=== PATIENT | male | born 1950 | race Two or more races ===

== ENCOUNTER 2018-09-06 02:02 | Inpatient (IN) | payer SELFPAY ==
[~2018-09-06] VITALS: Ht 167.6 cm; Wt 78.0 kg
[2018-09-06 02:05] VITALS: BP 127/75
[2018-09-06] MEDS ORDERED: Isovue-370 150ml vial INJ PRN (02:15)
[2018-09-06] MEDS ORDERED: Nitroglycerin 2% oint pkt TOPIC ONE (02:15)
[2018-09-06] MEDS ORDERED: Morphine Sulfate 2mg/ml Inj IVP ONE (02:15)
[2018-09-06 02:38] LABS: BASOPHILS % (AUTO) 1.2 % (0.0-2.0); EOSINOPHILS % (AUTO) 6.8 % (0.0-3.0); HEMATOCRIT 37.8 % (42.0-52.0); LYMPHOCYTES % (AUTO) 20.8 % (20.0-45.0); MEAN CORPUSCULAR VOLUME 94 FL (80-99); MONOCYTES % (AUTO) 5.8 % (1.0-10.0); NEUTROPHILS % (AUTO) 65.5 % (45.0-75.0); PLATELET COUNT 170 K/UL (150-450); RED BLOOD COUNT 4.02 M/UL (4.70-6.10); RED CELL DISTRIBUTION WIDTH 11.7 % (11.6-14.8); WHITE BLOOD COUNT 6.6 K/UL (4.8-10.8)
[2018-09-06 02:51] LABS: ANION GAP 11 mmol/L (5-15); BLOOD UREA NITROGEN 22 mg/dL (7-18); CARBON DIOXIDE 25 MMOL/L (21-32); CHLORIDE 104 MMOL/L (98-107); CREATININE 1.1 MG/DL (0.55-1.30); POTASSIUM 4.2 MMOL/L (3.5-5.1); SODIUM 140 MMOL/L (136-145)
[2018-09-06 03:02] LABS: ALANINE AMINOTRANSFERASE 25 U/L (12-78); ALBUMIN 3.5 G/DL (3.4-5.0); ALBUMIN/GLOBULIN RATIO 1.1 (1.0-2.7); ALKALINE PHOSPHATASE 64 U/L (46-116); ASPARTATE AMINO TRANSFERASE 17 U/L (15-37); BILIRUBIN,TOTAL 0.5 MG/DL (0.2-1.0); CREATINE KINASE 158 U/L (26-308)
[2018-09-06] MEDS ORDERED: METFORMIN500 MG/5 M PO (03:21)
[2018-09-06] MEDS ORDERED: ENALAPRIL MALEAT5 MG ORAL (03:21)
[2018-09-06] MEDS ORDERED: ASPIRIN-LOW81 MG ORAL (03:21)
[2018-09-06] MEDS ORDERED: LIPITOR80 MG ORAL (03:23)
[2018-09-06] MEDS ORDERED: METOPROLOL SUCC50 MG ORAL (03:23)
--- NOTE | 2018-09-06 04:35 | Diagnostic Imaging Report ---
EXAM: XR Chest, 1 View. CLINICAL HISTORY: CP TECHNIQUE: Frontal view of the chest. COMPARISON: No relevant prior studies available. FINDINGS: Lungs: No airspace consolidation or acute interstitial abnormality. Pleural spaces: Unremarkable. No pneumothorax. Heart: Unremarkable. No cardiomegaly. Mediastinum: Unremarkable. Bones: Unremarkable. No acute fracture. IMPRESSION: No evidence of active cardiopulmonary abnormality.
--- NOTE | 2018-09-06 04:35 | Diagnostic Imaging Report ---
EXAM: CT Chest With Intravenous Contrast. CLINICAL HISTORY: Chest pain TECHNIQUE: Axial computed tomography images of the chest with intravenous contrast during the arterial phase of enhancement. CTDI is 23.1 mGy and DLP is 758 mGy-cm. One or more of the following dose reduction techniques were used: automated exposure control, adjustment of the mA and/or kV according to patient size, use of iterative reconstruction technique. COMPARISON: No relevant prior studies available. FINDINGS: Pulmonary arteries: Unremarkable. No pulmonary embolism. Aorta: No acute findings. No thoracic aortic aneurysm. Lungs: Lungs are normally aerated. No evidence of airspace consolidation or interstitial abnormality. No pulmonary nodules or masses. Pleural spaces: Unremarkable. No significant effusion. No pneumothorax. Heart: Heart size normal. Severe coronary artery calcifications. No significant pericardial effusion. No evidence of RV dysfunction. Bones: Unremarkable. No acute fracture. Lymph nodes: Unremarkable. No enlarged lymph nodes. IMPRESSION: No pulmonary embolism. No thoracic aortic dissection or aneurysmal dilatation. Severe coronary artery calcifications.
[2018-09-06 04:40] LABS: APPEARANCE,URINE CLEAR; BILIRUBIN, URINE NEGATIVE (NEGATIVE); COLOR,URINE PALE YELLOW; GLUCOSE, URINE (UA) NEGATIVE (NEGATIVE); KETONES,URINE NEGATIVE (NEGATIVE); LEUKOCYTE ESTERASE ,URINE NEGATIVE (NEGATIVE); NITRITE,URINE NEGATIVE (NEGATIVE); PH,URINE 7 (4.5-8.0); PROTEIN,URINE NEGATIVE (NEGATIVE); UROBILINOGEN,URINE NORMAL MG/DL (0.0-1.0)
--- NOTE | 2018-09-06 05:28 | Emergency Room Report ---
History of Present Illness General Chief Complaint: Chest Pain Source: Patient Present Illness HPI Patient awakened with substernal chest pain. This felt exactly right the same as when he had an acute myocardial infarction in [place] a few years ago. Paramedics gave him aspirin and nitroglycerin. The pain started off as an 8/10 and then was reduced to about 6/10 with medication. The pain is not radiating and is constant. He denies diaphoresis or nausea. Patient has risk factors of diabetes, hypertension, high cholesterol and previous smoking. He believes his family history was also positive. Prior cath in [place]. Not know if stent. In addition he's had some indigestion type of feelings with eating spicy foods. He had a transatlantic flight 3 days ago. He denies any calf pain. There's been no prior blood clots. No fevers, cough, sore throat, NVD, dysuria, joint pain, rashes, headache, palpitations, depression. Glucose controlled on oral medications. Allergies: Coded Allergies: No Known Allergies (Unverified , 09/06/18) Patient History Past Medical History: see triage record Social History: Denies: smoking - before Social History Narrative from [facility] Reviewed Nursing Documentation: PMH: Agreed; PSxH: Agreed Nursing Documentation-PMH Past Medical History: No History, Except For Hx Cardiac Problems: Yes Hx Hypertension: Yes Hx Diabetes: Yes - dm2 Review of Systems All Other Systems: negative except mentioned in HPI Physical Exam Vital Signs Date Time Temp Pulse Resp B/P (MAP) Pulse Ox O2 Delivery O2 Flow Rate FiO2 09/06/18 01:55 97.5 104 16 127/75 99 Room Air 97.5 Sp02 EP Interpretation: reviewed, normal General Appearance: well appearing, no apparent distress, GCS 15 Head: normocephalic Eyes: bilateral eye normal inspection, bilateral eye PERRL ENT: moist mucus membranes Neck: supple Respiratory: lungs clear, normal breath sounds Cardiovascular #1: regular rate, rhythm Cardiovascular #2: 2+ radial (R) Gastrointestinal: normal inspection, normal bowel sounds, non tender, no mass, non-distended Musculoskeletal: back normal, gait/station normal, normal range of motion Neurologic: alert, oriented x3 Skin: normal inspection, warm/dry Procedures Critical Care Time Critical Care Time Total Critical Care Time: 45 min bedside evaluation and treatment excludes procedures (EKGs). Reason for critical care: NSTEMI, threat to sign out AMA, exclude PE Possible complications: hypotension, hypertension, SD, shock, arrhythmias, metabolic acidosis, end organ damage, respiratory failure. Interventions: nitro-paste, metoprolol, plavix, discussion regarding AMA Course: Patient with multiple risk factors with chest pain. Treated in field with aspirin and nitrates. Continued nitrates. Due to recent travel history, CTA obtained and excluded PE. Pain free, and patient and family want to sign out AMA. Repeat troponin +. Repeat EKG, no injury. Metoprolol given with improved HR. Pain free. Plavix given. Consultations: nursing staff, EMS, family, admitting MD Performed by: Dr. Mcpherson Tolerated well condition = serious Medical Decision Making Diagnostic Impression: Primary Impression: NSTEMI (non-ST elevated myocardial infarction) ER Course Patient presents with substernal chest pain with multiple risk factors and prior SD. Differential includes acute myocardial infarction, acute coronary syndrome, reflux, atypical chest pain, PE amongst others. Of concern he just came to this country from [facility] 3 days ago in so there is increased risk of possible pulmonary embolus. The patient will be evaluation with EKG, chest x- ray, CT angiogram and labs. Patient received aspirin in the field and nitrates. The patient will be given Nitropaste and morphine and Zofran were ordered. EKG with sinus tachycardia and nonspecific ST-T wave changes. Chest x-ray no infiltrates. CT angiogram without pulmonary embolus. Initial troponin negative. Patient had refuted morphine but is pain-free at this time. Patient needs admission for the rest of exclusion of cardiac injury. Initially family and patient wanted to sign out AGAINST MEDICAL ADVICE.. I discussed the risks with him and the benefits and the course of treatment plan they agreed to stay. Patient was presented to Dr. Lilly who accepted the patient. Repeat troponin +. Metoprolol given. Plavix given. Repeat EKG with peaked T waves, still no STEMI. Discussed possible need for cath. Patient and family understood. Admit SDU, Dr. Lilly. Laboratory Tests Test 09/06/18 02:20 09/06/18 04:30 09/06/18 05:25 White Blood Count 6.6 K/UL (4.8-10.8) Red Blood Count 4.02 M/UL (4.70-6.10) L Hemoglobin 13.0 G/DL (14.2-18.0) L Hematocrit 37.8 % (42.0-52.0) L Mean Corpuscular Volume 94 FL (80-99) Mean Corpuscular Hemoglobin 32.5 PG (27.0-31.0) H Mean Corpuscular Hemoglobin Concent 34.5 G/DL (32.0-36.0) Red Cell Distribution Width 11.7 % (11.6-14.8) Platelet Count 170 K/UL (150-450) Mean Platelet Volume 6.4 FL (6.5-10.1) L Neutrophils (%) (Auto) 65.5 % (45.0-75.0) Lymphocytes (%) (Auto) 20.8 % (20.0-45.0) Monocytes (%) (Auto) 5.8 % (1.0-10.0) Eosinophils (%) (Auto) 6.8 % (0.0-3.0) H Basophils (%) (Auto) 1.2 % (0.0-2.0) Prothrombin Time 10.7 SEC (9.30-11.50) Prothrombin Time INR 1.0 (0.9-1.1) PTT 25 SEC (23-33) Sodium Level 140 MMOL/L (136-145) Potassium Level 4.2 MMOL/L (3.5-5.1) Chloride Level 104 MMOL/L (98-107) Carbon Dioxide Level 25 MMOL/L (21-32) Anion Gap 11 mmol/L (5-15) Blood Urea Nitrogen 22 mg/dL (7-18) H Creatinine 1.1 MG/DL (0.55-1.30) Estimate Glomerular Filtration Rate > 60 mL/min (>60) Glucose Level 158 MG/DL (74-106) H Calcium Level 9.0 MG/DL (8.5-10.1) Total Bilirubin 0.5 MG/DL (0.2-1.0) Aspartate Amino Transferase (AST) 17 U/L (15-37) Alanine Aminotransferase (ALT) 25 U/L (12-78) Alkaline Phosphatase 64 U/L (46-116) Total Creatine Kinase 158 U/L (26-308) Troponin I 0.006 ng/mL (0.000-0.056) 0.202 ng/mL (0.000-0.056) Pro-B-Type Natriuretic Peptide 146 pg/mL (0-125) H Total Protein 6.6 G/DL (6.4-8.2) Albumin 3.5 G/DL (3.4-5.0) Globulin 3.1 g/dL Albumin/Globulin Ratio 1.1 (1.0-2.7) Urine Color Pale yellow Urine Appearance Clear Urine pH 7 (4.5-8.0) Urine Specific [place] 1.005 (1.005-1.035) Urine Protein Negative (NEGATIVE) Urine Glucose (UA) Negative (NEGATIVE) Urine Ketones Negative (NEGATIVE) Urine Blood Negative (NEGATIVE) Urine Nitrite Negative (NEGATIVE) Urine Bilirubin Negative (NEGATIVE) Urine Urobilinogen Normal MG/DL (0.0-1.0) Urine Leukocyte Esterase Negative (NEGATIVE) EKG Diagnostic Results Rate: tachycardiac Rhythm: NSR ST Segments: no acute changes Rhythm Strip Diag. Results EP Interpretation: yes Rhythm: no PVC's, no ectopy, other - ST Chest X-Ray Diagnostic Results Chest X-Ray Diagnostic Results : Chest X-Ray Ordered: Yes # of Views/Limited/Complete: 1 View Indication: Chest Pain EP Interpretation: Yes Interpretation: no consolidation, no effusion, no pneumothorax Impression: No acute disease Electronically Signed by: Michael Mcpherson MD CT/MRI/US Diagnostic Results CT/MRI/US Diagnostic Results : Imaging Test Ordered: CTA chest Impression no PE Last Vital Signs Date Time Temp Pulse Resp B/P (MAP) Pulse Ox O2 Delivery O2 Flow Rate FiO2 09/06/18 09:14 126/77 09/06/18 09:02 84 09/06/18 08:00 97.7 17 100 97.7 09/06/18 08:00 Room Air Status: improved Disposition: ADMITTED INPATIENT Condition: Serious Referrals: NOT CHOSEN CHASE/,REFERRING (PCP) Michael Mcpherson M.D. Sep 06, 2018 05:28
[2018-09-06] MEDS ORDERED: Metoprolol 5mg/5ml Inj IVP STA (05:59)
[2018-09-06 06:57] VITALS: BP 126/77
[2018-09-06 08:00] VITALS: BP 126/77
[2018-09-06] MEDS ORDERED: Enalapril 2.5mg tab ONE (08:43)
[2018-09-06] MEDS: Aspirin Baby 81mg ORAL SCH (09:02)
[2018-09-06] MEDS: Metoprolol Succinate XL 50mg tab ORAL SCH (09:02)
[2018-09-06] MEDS: Enoxaparin 40mg Inj SUBQ SCH (09:03)
[2018-09-06] MEDS: Enalapril 5mg tab ORAL SCH ×2 (09:14→21:14)
--- NOTE | 2018-09-06 09:40 | Consultation ---
History of Present Illness General Date patient seen: Sep 06, 2018 Time patient seen: 09:35 Chief Complaint: Chest Pain Present Illness HPI 68 year old male visiting from [place]. He has a hx of CAD s/p PCI and NE He comes in with substernal chest pain. 04/27. States he was sleeping when he suddenly felt pressure and aching. Pain was non-radiating, No SOB. He was given two doses of nitro 0.4 mg and 1 tab of aspirin 324 mg. CXR clear. CTA No pulmonary embolism. No thoracic aortic dissection or aneurysmal dilatation. Severe coronary artery calcifications. Troponin elevated at 0.2 Allergies: Coded Allergies: No Known Allergies (Unverified , 09/06/18) Medication History Scheduled Aspirin (Aspirin EC), 100 MG ORAL DAILY, (Reported) Atorvastatin (Lipitor), 20 MG ORAL BEDTIME, (Reported) Enalapril Maleate* (Enalapril Maleate*), 5 MG ORAL EVERY 12 HOURS, (Reported) Metformin HCl (Metformin HCl), 850 MG PO THREE TIMES A DAY, (Reported) Metoprolol Succinate* (Metoprolol Succinate*), 50 MG ORAL DAILY, (Reported) Patient History Healthcare decision maker Resuscitation status Advanced Directive on File Review of Systems Constitutional: Reports: no symptoms Eye: Reports: no symptoms ENT: Reports: no symptoms Respiratory: Reports: no symptoms Cardiovascular: Reports: chest pain Gastrointestinal: Reports: no symptoms Genitourinary: Reports: no symptoms Musculoskeletal: Reports: no symptoms Skin: Reports: no symptoms Psychiatric: Reports: no symptoms Neurological: Reports: no symptoms Endocrine: Reports: no symptoms Hematologic/Lymphatic: Reports: no symptoms Physical Exam General Appearance: no apparent distress Lines, tubes and drains: peripheral HEENT: normocephalic, atraumatic Neck: non-tender, normal alignment, supple, normal inspection Respiratory/Chest: chest wall non-tender, lungs clear, normal breath sounds Cardiovascular/Chest: normal peripheral pulses, normal rate, regular rhythm Abdomen: normal bowel sounds, non tender Extremities: normal range of motion, non-tender, normal inspection, no calf tenderness, normal capillary refill Skin Exam: normal pigmentation, warm/dry Neurologic: casework manager II-XII grossly normal, no motor/sensory deficits, alert, oriented x 3 Last 24 Hour Vital Signs Date Time Temp Pulse Resp B/P (MAP) Pulse Ox O2 Delivery O2 Flow Rate FiO2 09/06/18 09:14 126/77 09/06/18 09:02 84 126/77 09/06/18 08:00 97.7 84 17 126/77 (93) 100 97.7 09/06/18 07:41 86 09/06/18 06:57 98.8 92 16 110/66 99 Room Air 09/06/18 06:57 97.7 84 17 126/77 (93) 100 97.7 09/06/18 06:06 92 109/59 09/06/18 02:38 124/71 09/06/18 02:05 97.5 88 16 127/75 99 Room Air 97.5 09/06/18 02:05 104 16 Room Air 09/06/18 01:55 97.5 104 16 127/75 99 Room Air 97.5 Laboratory Tests Test 09/06/18 02:20 09/06/18 04:30 09/06/18 05:25 White Blood Count 6.6 K/UL (4.8-10.8) Red Blood Count 4.02 M/UL (4.70-6.10) L Hemoglobin 13.0 G/DL (14.2-18.0) L Hematocrit 37.8 % (42.0-52.0) L Mean Corpuscular Volume 94 FL (80-99) Mean Corpuscular Hemoglobin 32.5 PG (27.0-31.0) H Mean Corpuscular Hemoglobin Concent 34.5 G/DL (32.0-36.0) Red Cell Distribution Width 11.7 % (11.6-14.8) Platelet Count 170 K/UL (150-450) Mean Platelet Volume 6.4 FL (6.5-10.1) L Neutrophils (%) (Auto) 65.5 % (45.0-75.0) Lymphocytes (%) (Auto) 20.8 % (20.0-45.0) Monocytes (%) (Auto) 5.8 % (1.0-10.0) Eosinophils (%) (Auto) 6.8 % (0.0-3.0) H Basophils (%) (Auto) 1.2 % (0.0-2.0) Prothrombin Time 10.7 SEC (9.30-11.50) Prothromb Time International Ratio 1.0 (0.9-1.1) Activated Partial Thromboplast Time 25 SEC (23-33) Sodium Level 140 MMOL/L (136-145) Potassium Level 4.2 MMOL/L (3.5-5.1) Chloride Level 104 MMOL/L (98-107) Carbon Dioxide Level 25 MMOL/L (21-32) Anion Gap 11 mmol/L (5-15) Blood Urea Nitrogen 22 mg/dL (7-18) H Creatinine 1.1 MG/DL (0.55-1.30) Estimat Glomerular Filtration Rate > 60 mL/min (>60) Glucose Level 158 MG/DL (74-106) H Calcium Level 9.0 MG/DL (8.5-10.1) Total Bilirubin 0.5 MG/DL (0.2-1.0) Aspartate Amino Transf (AST/SGOT) 17 U/L (15-37) Alanine Aminotransferase (ALT/SGPT) 25 U/L (12-78) Alkaline Phosphatase 64 U/L (46-116) Total Creatine Kinase 158 U/L (26-308) Troponin I 0.006 ng/mL (0.000-0.056) 0.202 ng/mL (0.000-0.056) Pro-B-Type Natriuretic Peptide 146 pg/mL (0-125) H Total Protein 6.6 G/DL (6.4-8.2) Albumin 3.5 G/DL (3.4-5.0) Globulin 3.1 g/dL Albumin/Globulin Ratio 1.1 (1.0-2.7) Urine Color Pale yellow Urine Appearance Clear Urine pH 7 (4.5-8.0) Urine Specific [place] 1.005 (1.005-1.035) Urine Protein Negative (NEGATIVE) Urine Glucose (UA) Negative (NEGATIVE) Urine Ketones Negative (NEGATIVE) Urine Blood Negative (NEGATIVE) Urine Nitrite Negative (NEGATIVE) Urine Bilirubin Negative (NEGATIVE) Urine Urobilinogen Normal MG/DL (0.0-1.0) Urine Leukocyte Esterase Negative (NEGATIVE) Height (Feet): 5 Height (Inches): 6.00 Weight (Pounds): 172 Medications Current Medications Medications (Trade) Dose Ordered Sig/Inocencia Route PRN Reason Start Time Stop Time Status Last Admin Dose Admin Acetaminophen (Tylenol) 650 mg Q4H PRN ORAL Mild Pain (Pain Scale 1-3) 09/06/18 08:30 10/06/18 08:29 Aspirin (ASA) 81 mg DAILY ORAL 09/06/18 09:00 10/06/18 08:59 09/06/18 09:02 Atorvastatin Calcium (Lipitor) 40 mg BEDTIME ORAL 09/06/18 21:00 10/06/18 20:59 Dextrose (Dextrose 50%) 25 ml Q30M PRN IV Hypoglycemia 09/06/18 08:30 10/06/18 08:29 Dextrose (Dextrose 50%) 50 ml Q30M PRN IV Hypoglycemia 09/06/18 08:30 10/06/18 08:29 Enalapril Maleate (Vasotec) 5 mg EVERY 12 HOURS ORAL 09/06/18 09:00 10/06/18 08:59 09/06/18 09:14 Enoxaparin Sodium (Lovenox) 40 mg Q24H SUBQ 09/06/18 09:00 10/06/18 08:59 09/06/18 09:03 Famotidine (Pepcid) 40 mg DAILY ORAL 09/06/18 09:00 10/06/18 08:59 09/06/18 09:00 Insulin Aspart (NovoLOG) BEFORE MEALS AND HS SUBQ 09/06/18 11:30 10/06/18 11:29 Iopamidol (Isovue-370 150ml) 150 ml NOW PRN INJ Radiology Procedure 09/06/18 02:15 09/08/18 02:10 Metoprolol Succinate (Toprol XL) 50 mg DAILY ORAL 09/06/18 09:00 10/06/18 08:59 09/06/18 09:02 Ondansetron HCl (Zofran) 4 mg Q6H PRN IVP Nausea & Vomiting 09/06/18 08:30 10/06/18 08:29 Sodium Chloride 1,000 ml @ 75 mls/hr [id number] IVLG 09/06/18 09:00 10/06/18 08:59 09/06/18 09:03 Assessment/Plan Status: stable Assessment/Plan Assessment CAD Chest pain NSTEMI Diabetes Plan: Heparin gtt Serial EKG/Troponin Nitro prn chest pain Aspirin/Plavix Enalapril Atorvastatin Will need transfer to [facility] for cardiac cath given: CP + Troponin and hx of CAD /NE/PCI (High SURI score) Echocardiogram to evaluate LV function/wall motion Michael Palomino MD Sep 06, 2018 09:40
[2018-09-06 12:00] VITALS: BP 150/66
[2018-09-06] MEDS: NovoLOG Insulin Flexpen SUBQ SCH ×3 (12:15→21:00)
[2018-09-06 16:00] VITALS: BP 118/68
[2018-09-06 20:00] VITALS: BP 107/60
[2018-09-06] MEDS: Atorvastatin 20mg tab ORAL SCH (21:13)
--- NOTE | 2018-09-06 22:00 | History and Physical Report ---
DATE OF ADMISSION: 09/06/2018 REASON FOR ADMISSION: 1. Acute coronary syndrome with chest pain. 2. Hypertension. 3. Diabetes mellitus. HISTORY OF PRESENT ILLNESS: The patient is a 68-year-old gentleman, who presented to the emergency room a few hours prior complaining of chest pain, 06/27. The patient states this felt exactly the way he had his first acute myocardial infarction approximately four years ago in [place]. He is currently feeling otherwise well and troponins have been trending slightly upwards. PAST MEDICAL HISTORY: 1. Coronary artery disease, status post GA. 2. Hypertension. 3. Hyperlipidemia. 4. Diabetes mellitus. PAST SURGICAL HISTORY: Noncontributory. ALLERGIES: No known drug allergies. SOCIAL HISTORY: Previous tobacco use. No alcohol or illicit drug use. FAMILY HISTORY: Positive for diabetes and hypertension. REVIEW OF SYSTEMS: NEUROLOGIC: The patient denies headache, change in vision, syncope or presyncopal episodes. CARDIOVASCULAR: He was having chest pain and pressure. No palpitations. PULMONARY: No difficulty breathing, productive cough, or sputum. GASTROINTESTINAL/GENITOURINARY: No change in urinary or bowel habits. No nausea, vomiting, or diarrhea. ENDOCRINOLOGY: No night sweats, fevers, or chills. LABORATORY DATA: Laboratories dated September 06, 2018, white cell count 6.6, hemoglobin 13, and platelet count 170. Sodium 140, potassium 4.2, BUN 22, creatinine 1.1, glucose 158, calcium 9.0. Troponin 0.202. PHYSICAL EXAMINATION: VITAL SIGNS: Blood pressure 110/66, 99% oxygen saturation on room air, pulse 92, and temperature 98.8. GENERAL: The patient awake, alert, not in distress. HEENT: Extraocular muscles intact. No lymphadenopathy. Oropharyngeal is clear and dry. CARDIOVASCULAR: S1, S2. No rubs or gallops. PULMONARY: Clear to auscultation bilaterally. No rales, rhonchi or wheezes. ABDOMEN: Nondistended and nontender. EXTREMITIES: No edema noted. ASSESSMENT AND PLAN: 1. Acute coronary syndrome, non ST-segment elevation myocardial infarction with trending troponin I upwards. At this time, Dr. Palomino, Cardiology has been consulted for further evaluation and management. 2. Hypertension. We will continue metoprolol and enalapril. 3. Hyperlipidemia. We will continue statin therapy. 4. Diabetes mellitus. At this time, insulin sliding scale with Accu-Cheks. We will hold metformin as he has been recently exposed to IV contrast. 5. DVT prophylaxis with Lovenox subcutaneous. Lance Shine MD DR: MAYANK JOB#: [id number] CC:
[2018-09-07] VITALS: BP 138/74
[2018-09-07] MEDS: NovoLOG Insulin Flexpen SUBQ SCH ×4 (06:30→20:59)
[2018-09-07 06:41] LABS: EOSINOPHILS % (AUTO) 4.3 % (0.0-3.0); HEMATOCRIT 36.6 % (42.0-52.0); HEMOGLOBIN 12.5 G/DL (14.2-18.0); MEAN CORPUSCULAR VOLUME 94 FL (80-99); MONOCYTES % (AUTO) 7.2 % (1.0-10.0); NEUTROPHILS % (AUTO) 69.5 % (45.0-75.0); PLATELET COUNT 161 K/UL (150-450); RED CELL DISTRIBUTION WIDTH 11.2 % (11.6-14.8); WHITE BLOOD COUNT 5.2 K/UL (4.8-10.8)
[2018-09-07 06:57] LABS: ANION GAP 5 mmol/L (5-15); BLOOD UREA NITROGEN 14 mg/dL (7-18); CALCIUM 8.3 MG/DL (8.5-10.1); CARBON DIOXIDE 27 MMOL/L (21-32); CHLORIDE 107 MMOL/L (98-107); CREATININE 0.9 MG/DL (0.55-1.30); POTASSIUM 3.9 MMOL/L (3.5-5.1); SODIUM 139 MMOL/L (136-145)
[2018-09-07 08:00] VITALS: BP 128/71
--- NOTE | 2018-09-07 09:10 | Nephrology Progress Note ---
Assessment/Plan Assessment/Plan A/P 1) ACS/NSTEMI- Trop I trending down - ? stent to cirumflex in past - transfer to [facility] for heart catherization 2) HTN- at goal 3) HLP- lipitor 4) DVT prophylaxsis with lovenox Subjective Date patient seen: Sep 07, 2018 Time patient seen: 09:07 ROS Limited/Unobtainable: No Allergies: Coded Allergies: No Known Allergies (Unverified , 09/06/18) All Systems: reviewed and negative except above Subjective Patient in no distress Objective Last 24 Hour Vital Signs Date Time Temp Pulse Resp B/P (MAP) Pulse Ox O2 Delivery O2 Flow Rate FiO2 09/07/18 08:00 98.1 74 20 128/71 (90) 97 98.1 09/07/18 04:00 Room Air 09/07/18 03:35 66 09/07/18 00:00 98.3 70 18 138/74 (95) 96 98.3 09/07/18 00:00 Room Air 09/06/18 23:31 70 09/06/18 21:14 107/60 09/06/18 20:00 Room Air 09/06/18 20:00 98.1 77 18 107/60 (76) 96 98.1 09/06/18 19:35 73 09/06/18 16:00 97.5 78 20 118/68 (85) 97 97.5 09/06/18 16:00 89 09/06/18 16:00 Room Air 09/06/18 12:00 Room Air 09/06/18 12:00 97.5 69 21 150/66 (94) 100 97.5 09/06/18 12:00 83 09/06/18 09:14 126/77 Intake and Output 09/06/18 09/07/18 19:00 07:00 Intake Total 2186.25 ml 557.5 ml Output Total 1675 ml Balance 511.25 ml 557.5 ml Intake Oral 1440 ml 220 ml IV Total 746.25 ml 337.5 ml Output Urine Total 1675 ml # Voids 5 Laboratory Tests 09/06/18 12:00: Troponin I 0.410H 09/06/18 18:08: Troponin I 0.284H 09/07/18 00:20: Troponin I 0.134H 09/07/18 06:22: Troponin I 0.132H, White Blood Count 5.2, Red Blood Count 3.90L, Hemoglobin 12.5L, Hematocrit 36.6L, Mean Corpuscular Volume 94, Mean Corpuscular Hemoglobin 32.2H, Mean Corpuscular Hemoglobin Concent 34.3, Red Cell Distribution Width 11.2L, Platelet Count 161, Mean Platelet Volume 6.7, Neutrophils (%) (Auto) 69.5, Lymphocytes (%) (Auto) 18.0L, Monocytes (%) (Auto) 7.2, Eosinophils (%) (Auto) 4.3H, Basophils (%) (Auto) 1.0, Sodium Level 139, Potassium Level 3.9, Chloride Level 107, Carbon Dioxide Level 27, Anion Gap 5, Blood Urea Nitrogen 14, Creatinine 0.9, Estimat Glomerular Filtration Rate > 60 , Glucose Level 116H, Calcium Level 8.3L Height (Feet): 5 Height (Inches): 6.00 Weight (Pounds): 172 General Appearance: no apparent distress, alert EENT: normal ENT inspection Neck: normal alignment, supple Cardiovascular: normal rate, regular rhythm Respiratory/Chest: lungs clear, normal breath sounds Abdomen: non tender, soft Edema: no edema noted Arm (L), no edema noted Arm (R), no edema noted Leg (L), no edema noted Leg (R), no edema noted Pedal (L), no edema noted Pedal (R), no edema noted Generalized Lance Shine MD Sep 07, 2018 09:10
--- NOTE | 2018-09-07 09:14 | Diagnostic Imaging Report ---
PORTABLE AP UPRIGHT CXR: HISTORY: 68-year-old male with chest pain. COMPARISON: Portable CXR and chest CTA with intravenous contrast 09/06/2018. FINDINGS: Compared to the prior exams and allowing for differences in modality/technique, there has been no significant interval change. Lungs remain essentially clear, apart from thin linear subsegmental atelectasis or fibrosis/scarring in the lateral left lung base. Heart size is normal and stable. Thoracic aortic calcified atherosclerotic plaque is noted, as before. No obvious pneumothorax or effusion. IMPRESSION: No acute abnormality or significant interval change.
[2018-09-07] MEDS: Aspirin Baby 81mg ORAL SCH (09:19)
[2018-09-07] MEDS: Enalapril 5mg tab ORAL SCH ×2 (09:20→20:56)
[2018-09-07] MEDS: Metoprolol Succinate XL 50mg tab ORAL SCH (09:20)
[2018-09-07] MEDS: Enoxaparin 40mg Inj SUBQ SCH (09:21)
--- NOTE | 2018-09-07 10:25 | Cardiology Progress Note ---
Assessment/Plan Status: stable Assessment/Plan Assessment CAD Chest pain NSTEMI Diabetes Plan: Heparin gtt x48 hours Serial EKG/Troponin -> down trending Nitro prn chest pain Aspirin/Plavix Enalapril Atorvastatin Stress test Saturday morning to evaluate degree of ischemia if not able to transfer Will need cardiac cath given: CP + Troponin and hx of CAD/MN/PCI (High SURI score) Echocardiogram with preserved LV function Subjective Cardiovascular: Reports: no symptoms Respiratory: Reports: no symptoms Gastrointestinal/Abdominal: Reports: no symptoms Genitourinary: Reports: no symptoms Subjective Vitals stable, chest pain controlled, CXR No acute abnormality or significant interval change, troponin down trending. Objective Last 24 Hour Vital Signs Date Time Temp Pulse Resp B/P (MAP) Pulse Ox O2 Delivery O2 Flow Rate FiO2 09/07/18 09:20 74 128/71 09/07/18 09:20 128/71 09/07/18 08:00 98.1 74 20 128/71 (90) 97 98.1 09/07/18 04:00 Room Air 09/07/18 03:35 66 09/07/18 00:00 98.3 70 18 138/74 (95) 96 98.3 09/07/18 00:00 Room Air 09/06/18 23:31 70 09/06/18 21:14 107/60 09/06/18 20:00 Room Air 09/06/18 20:00 98.1 77 18 107/60 (76) 96 98.1 09/06/18 19:35 73 09/06/18 16:00 97.5 78 20 118/68 (85) 97 97.5 09/06/18 16:00 89 09/06/18 16:00 Room Air 09/06/18 12:00 Room Air 09/06/18 12:00 97.5 69 21 150/66 (94) 100 97.5 09/06/18 12:00 83 General Appearance: no apparent distress, alert EENT: PERRL/EOMI, normal ENT inspection, TMs normal Neck: non-tender, normal alignment, supple, normal inspection, no JVD Rhythm: NSR Cardiovascular: normal peripheral pulses, normal rate, regular rhythm Respiratory/Chest: chest wall non-tender, lungs clear Abdomen: normal bowel sounds, non tender, soft Extremities: normal range of motion, non-tender 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, no motor/sensory deficits Intake and Output 09/06/18 09/07/18 19:00 07:00 Intake Total 2186.25 ml 557.5 ml Output Total 1675 ml Balance 511.25 ml 557.5 ml Intake Oral 1440 ml 220 ml IV Total 746.25 ml 337.5 ml Output Urine Total 1675 ml # Voids 5 Laboratory Tests Test 09/06/18 12:00 09/06/18 18:08 09/07/18 00:20 09/07/18 06:22 Troponin I 0.410 ng/mL (0.000-0.056) 0.284 ng/mL (0.000-0.056) 0.134 ng/mL (0.000-0.056) 0.132 ng/mL (0.000-0.056) White Blood Count 5.2 K/UL (4.8-10.8) Red Blood Count 3.90 M/UL (4.70-6.10) L Hemoglobin 12.5 G/DL (14.2-18.0) L Hematocrit 36.6 % (42.0-52.0) L Mean Corpuscular Volume 94 FL (80-99) Mean Corpuscular Hemoglobin 32.2 PG (27.0-31.0) H Mean Corpuscular Hemoglobin Concent 34.3 G/DL (32.0-36.0) Red Cell Distribution Width 11.2 % (11.6-14.8) L Platelet Count 161 K/UL (150-450) Mean Platelet Volume 6.7 FL (6.5-10.1) Neutrophils (%) (Auto) 69.5 % (45.0-75.0) Lymphocytes (%) (Auto) 18.0 % (20.0-45.0) L Monocytes (%) (Auto) 7.2 % (1.0-10.0) Eosinophils (%) (Auto) 4.3 % (0.0-3.0) H Basophils (%) (Auto) 1.0 % (0.0-2.0) Sodium Level 139 MMOL/L (136-145) Potassium Level 3.9 MMOL/L (3.5-5.1) Chloride Level 107 MMOL/L (98-107) Carbon Dioxide Level 27 MMOL/L (21-32) Anion Gap 5 mmol/L (5-15) Blood Urea Nitrogen 14 mg/dL (7-18) Creatinine 0.9 MG/DL (0.55-1.30) Estimat Glomerular Filtration Rate > 60 mL/min (>60) Glucose Level 116 MG/DL (74-106) H Calcium Level 8.3 MG/DL (8.5-10.1) L Michael Palomino MD Sep 07, 2018 10:25
[2018-09-07 12:00] VITALS: BP 153/56
[2018-09-07 16:00] VITALS: BP 130/71
[2018-09-07 20:00] VITALS: BP 105/71
[2018-09-07] MEDS: Atorvastatin 20mg tab ORAL SCH (20:57)
[2018-09-08] VITALS: BP 110/74
[2018-09-08 04:00] VITALS: BP 118/74
[2018-09-08] MEDS: NovoLOG Insulin Flexpen SUBQ SCH ×2 (06:27→11:30)
--- NOTE | 2018-09-08 08:10 | Nephrology Progress Note ---
Assessment/Plan Assessment/Plan A/P 1) ACS/NSTEMI- Trop I trending down - ? stent to cirumflex in past - transfer to [facility] for heart catherization if required - Trop Is trending down and stress test scheduled for today 2) HTN- at goal 3) HLP- lipitor 4) DVT prophylaxsis with lovenox Subjective Date patient seen: Sep 08, 2018 Time patient seen: 08:09 ROS Limited/Unobtainable: No Allergies: Coded Allergies: No Known Allergies (Unverified , 09/06/18) Subjective Patient in no distress. CP resolved Objective Last 24 Hour Vital Signs Date Time Temp Pulse Resp B/P (MAP) Pulse Ox O2 Delivery O2 Flow Rate FiO2 09/08/18 04:00 Room Air 09/08/18 04:00 74 09/08/18 04:00 98.4 74 18 118/74 (89) 100 98.4 09/08/18 00:00 98.2 70 18 110/74 (86) 100 98.2 09/08/18 00:00 Room Air 09/08/18 00:00 70 09/07/18 20:56 105/71 09/07/18 20:00 98.2 70 20 105/71 (82) 97 98.2 09/07/18 20:00 69 09/07/18 20:00 Room Air 09/07/18 16:00 83 09/07/18 16:00 98.4 70 20 130/71 (90) 97 98.4 09/07/18 16:00 Room Air 09/07/18 12:00 98.1 63 22 153/56 (88) 100 98.1 09/07/18 12:00 72 09/07/18 12:00 Room Air 09/07/18 09:20 74 128/71 09/07/18 09:20 128/71 Intake and Output 09/07/18 09/08/18 19:00 07:00 Intake Total 2460 ml 1000 ml Output Total 350 ml 1200 ml Balance 2110 ml -200 ml Intake Oral 1560 ml 100 ml IV Total 900 ml 900 ml Output Urine Total 350 ml 1200 ml # Voids 2 # Bowel Movements 1 Laboratory Tests 09/07/18 12:00: Troponin I 0.116H 09/07/18 17:45: Troponin I 0.108H 09/08/18 03:41: Troponin I 0.077H Height (Feet): 5 Height (Inches): 6.00 Weight (Pounds): 172 General Appearance: no apparent distress, alert EENT: normal ENT inspection Neck: normal alignment, supple Cardiovascular: normal rate, regular rhythm Respiratory/Chest: lungs clear, normal breath sounds Abdomen: non tender, soft Edema: no edema noted Arm (L), no edema noted Arm (R), no edema noted Leg (L), no edema noted Leg (R), no edema noted Pedal (L), no edema noted Pedal (R), no edema noted Generalized Lance Shine MD Sep 08, 2018 08:10
[2018-09-08 08:30] VITALS: BP 120/68
[2018-09-08] MEDS: Enalapril 5mg tab ORAL SCH (08:38)
[2018-09-08] MEDS: Aspirin Baby 81mg ORAL SCH (08:40)
[2018-09-08] MEDS: Enoxaparin 40mg Inj SUBQ SCH (08:40)
[2018-09-08] MEDS: Metoprolol Succinate XL 50mg tab ORAL SCH (09:00)
[2018-09-08] MEDS ORDERED: Lexiscan 0.4mg/5ml syringe IV PRN (09:00)
--- NOTE | 2018-09-08 11:11 | Diagnostic Imaging Report ---
Indication: Dyspnea Comparison: 09/07/2018 A single view chest radiograph was obtained. Findings: Cardiomediastinal appearance is within normal limits for age. Minimal left basal atelectasis noted. Pulmonary vascularity is appropriate. Aorta is mildly calcified. The diaphragmatic contour is smooth and costophrenic angles are sharp. No pleural effusions are identified. The bones are unremarkable. Impression: No acute findings
[2018-09-08 11:38] VITALS: BP 132/82
[2018-09-08 15:15] VITALS: BP 148/70
[2018-09-08] MEDS ORDERED: Lexiscan 0.4mg/5ml syringe IV ONE (15:30)
[2018-09-08 16:00] VITALS: BP 149/76
--- NOTE | 2018-09-08 16:25 | Diagnostic Imaging Report ---
Indication: chest pain Technique: The study was conducted under the supervision of a prepleater. lexiscan (regadenoson) infusion over 10 seconds followed by intravenous administration of 30.5 mCi of technetium 99m Myoview was performed. Three plane SPECT imaging of the heart was then performed. A resting study was performed as part of the one-day protocol with 10.9 mCi of technetium 99m myoview injected intravenously at that time. Three plane SPECT imaging of the heart was obtained. Comparison: None Clinical data: 1. Clinical response: Non ischemic 2. Electrocardiographic response: Non ischemic Findings: The myocardial perfusion scan demonstrates no definite fixed or reversible perfusion defects. LVEF estimated at 81% which is likely overestimated. IMPRESSION: Negative myocardial perfusion scan
[2018-09-08] MEDS ORDERED: NovoLOG Insulin Flexpen SUBQ SCH (16:30)
--- NOTE | 2018-09-08 17:42 | Cardiology Progress Note ---
Assessment/Plan Status: stable Assessment/Plan Assessment CAD Chest pain NSTEMI Diabetes Plan: Heparin gtt x48 hours Serial EKG/Troponin -> down trending Nitro prn chest pain Aspirin/Plavix Enalapril Atorvastatin Stress test Saturday morning to evaluate degree of ischemia if not able to transfer Will need cardiac cath given: CP + Troponin and hx of CAD/AL/PCI (High SURI score) Echocardiogram with preserved LV function STRESS TEST NEGATIVE FOR ISCHEMIA, no further chest pain ok to discharge, follow up pcp next week Subjective Cardiovascular: Reports: no symptoms Respiratory: Reports: no symptoms Gastrointestinal/Abdominal: Reports: no symptoms Genitourinary: Reports: no symptoms Subjective Vitals stable, chest pain controlled, CXR No acute abnormality or significant interval change, troponin down trending. Stress test negative for ischemia Objective Last 24 Hour Vital Signs Date Time Temp Pulse Resp B/P (MAP) Pulse Ox O2 Delivery O2 Flow Rate FiO2 09/08/18 16:00 85 09/08/18 16:00 98.1 20 149/76 (100) 98 98.1 09/08/18 15:15 97.3 89 20 148/70 (96) 100 97.3 09/08/18 12:00 67 09/08/18 12:00 Room Air 09/08/18 11:38 97.5 67 20 132/82 (99) 100 97.5 09/08/18 08:38 120/68 09/08/18 08:30 Room Air 09/08/18 08:30 97.5 70 20 120/68 (85) 98 97.5 09/08/18 08:00 74 09/08/18 04:00 Room Air 09/08/18 04:00 74 09/08/18 04:00 98.4 74 18 118/74 (89) 100 98.4 09/08/18 00:00 98.2 70 18 110/74 (86) 100 98.2 09/08/18 00:00 Room Air 09/08/18 00:00 70 09/07/18 20:56 105/71 09/07/18 20:00 98.2 70 20 105/71 (82) 97 98.2 09/07/18 20:00 69 09/07/18 20:00 Room Air General Appearance: no apparent distress, alert EENT: PERRL/EOMI, normal ENT inspection Neck: non-tender, normal alignment, supple, normal inspection, no JVD Rhythm: NSR, SB Cardiovascular: normal peripheral pulses, normal rate, regular rhythm Respiratory/Chest: chest wall non-tender, lungs clear Abdomen: normal bowel sounds, non tender, soft Extremities: normal range of motion, non-tender, normal inspection 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
[2018-09-08] MEDS ORDERED: Enalapril 5mg tab ORAL SCH (21:00)
[2018-09-08] MEDS ORDERED: Atorvastatin 20mg tab ORAL SCH (21:00)
--- NOTE | 2018-09-09 08:51 | Discharge Summary ---
Discharge Summary Discharge Summary _ DATE OF ADMISSION: 09/06/2018 DATE OF DISCHARGE: 09/08/2018 REASON FOR ADMISSION: 68 years old male with past medical history of hypertension, hyperlipidemia, diabetes mellitus, coronary artery disease , status post NH and stenting 4-5 years ago , prior smoker, presented to emergency department with complaint of chest pain, which felt exactly the way as when he had acute myocardial infarction. Patient received aspirin and nitroglycerin en route to the hospital. Pain described as nonradiating and constant , initially 8/10, after aspirin and nitroglycerin pain decreased to 6 /10. He denied diaphoresis or nausea. Patient had transatlantic flight few days ago . He denied calf pain, no prior history of blood clots. Upon evaluation, vital signs revealed mild tachycardia with heart rate 104. Laboratory workup revealed no leukocytosis ,hemoglobin 13, hematocrit 37.8. Stable electrolytes. BUN 22, creatinine 1.1. Glucose 158. Stable LFT. Troponin 0.006. Pro BNP 146. Urinalysis without evidence of UTI. EKG revealed normal sinus rhythm, no acute ischemic changes. Chest x-ray revealed no acute cardiopulmonary pathology. CTA of chest revealed no pulmonary embolism. No thoracic aortic dissection or aneurysmal dilatation. Severe coronary artery calcification. Patient admitted with diagnoses of chest pain, possible acute coronary syndrome , hypertension ,hyperlipidemia ,diabetes mellitus. CONSULTANTS: property utilization manager dr. Palomino HOSPITAL COURSE: Patient admitted to telemetry/monitored floor. Second troponin +0.202. Patient started on anticoagulation with Lovenox . Antiplatelet therapy with aspirin and Plavix initiated. Beta polina was continued along with SAMARIA inhibitor. Statin was continued. Per property utilization manager patient had a high SURI score ,given positive troponin and history of coronary artery disease, NH , percutaneous coronary intervention along with chest pain. Enterprise Applications Manager recommended transfer to a higher level of care for cardiac catheterization. No cardiac catheterization services available in this hospital. Patient was placed on waiting list for transfer. Echocardiogram revealed preserved ejection fraction of 60% with mild left ventricular hypertrophy. No evidence of pericardial effusion. Subsequent troponin revealed minimal elevation with flat levels. Last troponin 0.077 EKG/telemetry revealed no acute ischemic changes . Subsequent troponin downtrending with minimal elevation and flat levels. Patient subsequently undergone myocardial perfusion stress test which was nonischemic It demonstrated no definite fixed or reversible perfusion defect. Left ventricular ejection fraction estimated to be 81%. Chest pain resolved. Stress test was negative as mentioned above. Enterprise Applications Manager cleared patient for discharge and follow-up with the primary care provider next week Blood sugar was managed with sliding scale of insulin as needed while in the hospital. Blood sugar was stable. Upon discharge resume oral metformin. GI prophylaxis provided. Patient was stable for discharge home. FINAL DIAGNOSES: NSTEMI Coronary artery disease with history of prior NH 2 and percutaneously coronary intervention with stenting Hypertension Hyperlipidemia Diabetes mellitus DISCHARGE MEDICATIONS: See Medication Reconciliation list. DISCHARGE INSTRUCTIONS: Patient was discharged home . Follow up with primary care provider in one week. I have been assigned to dictate discharge summary for this account. I was not involved in the patient's management. Elo Segovia NP Sep 09, 2018 08:51
[2018-09-09] MEDS ORDERED: Aspirin Baby 81mg ORAL SCH (09:00)
[2018-09-09] MEDS ORDERED: Enoxaparin 40mg Inj SUBQ SCH (09:00)
[2018-09-09] MEDS ORDERED: Metoprolol Succinate XL 50mg tab ORAL SCH (09:00)
--- NOTE | 2018-09-09 16:07 | Cardiology Report ---
APPROVED REPORT EXAM: Two-dimensional and M-mode echocardiogram with Doppler and color Doppler. INDICATION Chest Pain M-Mode DIMENSIONS IVSd1.3 (0.7-1.1cm)Left Atrium (MM)4.4 (1.6-4.0cm) LVDd3.8 (3.5-5.6cm)Aortic Root2.4 (2.0-3.7cm) PWd1.2 (0.7-1.1cm)Aortic Cusp Exc.1.5 (1.5-2.0cm) LVDs1.7 (2.5-4.0cm) PWs1.8 cm Technically difficult study due to poor acoustic windows. Study quality precludes accurate assessment of regional wall motion. Normal left ventricular chamber size, systolic function and wall motion. Left ventricular ejection fraction estimated to be 60 %. Mild left ventricular hypertrophy. No evidence of pericardial effusion. All other cardiac chamber sizes are within normal limits. Mild focal aortic valve sclerosis with adequate cusp excursion. Mildly thickened mitral valve leaflets with normal excursion. Mild mitral annulus and aortic root calcification. Pulmonic valve not visualized. Normal tricuspid valve structure. IVC is normal in size with physiological collapse. A color flow and spectral Doppler study was performed and revealed: No aortic insufficiency. Mild mitral regurgitation. Mitral diastolic velocities suggest mild left ventricular diastolic dysfunction (Grade I). No tricuspid regurgitation. Tricuspid systolic velocities suggests peak right ventricular systolic pressure of 8 mmHg.
--- NOTE | 2018-09-09 16:17 | Cardiology Report ---
APPROVED REPORT EKG Measurement Heart [id number] Normal sinus rhythm Left anterior fascicular block Abnormal ECG
--- NOTE | 2018-09-09 16:19 | Cardiology Report ---
APPROVED REPORT EKG Measurement Heart [id number] Sinus tachycardia Left axis deviation Pulmonary disease pattern Abnormal ECG
== END 2018-09-08 18:46 | disposition home or self-care (01) | DRG 282 ==
LOC: EDBD 02:02 → EMR 02:12 → 2E 04:14 → 2W 04:14 → UNDOADMIN 04:14 → EDBEDREQ 05:23 → 2E 09-08 15:20
DX: I21.4 Non-ST elevation (NSTEMI) myocardial infarction (principal); I25.2 Old myocardial infarction; I25.10 Atherosclerotic heart disease of native coronary artery without angina pectoris; Z95.5 Presence of coronary angioplasty implant and graft; I10 Essential (primary) hypertension; E78.5 Hyperlipidemia, unspecified; E11.9 Type 2 diabetes mellitus without complications
CPT/HCPCS: 36415; 71045; 71275; 78452; 80048; 80053; 81003; 82550; 82962; 83880; 84484; 85025; 85610; 85730; 93005; 93017; 93306; 96374; 96375; 99291; J1815; J2405; J2785